=== PATIENT | female | born 1995 | race Caucasian/White ===

== ENCOUNTER → 2016-12-13 | Outpatient (CLI) | payer OTHER | LOC: BHSO 10:39 | DX: F31.81 Bipolar II disorder (principal) ==

== ENCOUNTER → 2019-09-26 | Outpatient (CLI) | payer OTHER | LOC: COL.RAD 08:53 | DX: R10.2 Pelvic and perineal pain (principal) ==

== ENCOUNTER 2021-07-15 09:01 | Inpatient (IN) | payer OTHER ==
[~2021-07-15] VITALS: Ht 160.1 cm; Wt 88.2 kg
[2021-07-15] VITALS (15 sets, daily range): BP systolic 94–1206; BP diastolic 39–71; PULSE 49–71; TEMP 98.1–98.4
--- NOTE | 2021-07-15 09:05 | NUR ---
0905 39.0, G1L0 here for primary c/s for breech presentation. Abmulatory to 220 with spouse. Reports normal movement. Denies any LOF, VB, or regular contractions. Changes into clean gown. 0913- EFM exlpained and placed. VS obtained. Consent forms exlpained and signed. Assessment completed. 0925- IV to right FA. Routine labs obtained. IVF infusing. Questions invited and answered. Call light within reach.
[2021-07-15 09:45] LABS: BASO % 0.4 % (0.0-2.0); EOS % 0.4 % (0-4.0); GRAN # 7.3 (1.4-6.5); GRAN % 70.7 % (42.2-75.2); HEMOGLOBIN 11.3 g/dl (12.5-16.0); LYMPH # 2.2 (1.2-3.4); LYMPH % 21.8 % (20.0-51.0); MEAN CELL VOLUME 89 fl (80.0-100.0); MEAN CORPUSCULAR HEMOGLOBIN 30 pg (27.0-31.0); MEAN CORPUSCULAR HGB CONC 33 g/dl (33.0-37.0); MEAN PLATELET VOLUME 11.2 fl (7.4-10.4); MONO # 0.6 (0.1-0.6); MONO % 6.3 % (1.7-9.3); PLATELET COUNT 247 K/mm3 (130-400); RED BLOOD COUNT 3.79 M/mm3 (4.10-5.30)
[2021-07-15 09:48] LABS: HEMATOCRIT 33.9 % (37.0-47.0)
[2021-07-15] MEDS ORDERED: OSCAL 500 TAB500 MG PO (09:48)
[2021-07-15] MEDS ORDERED: PRENATAL TABLET PO (09:48)
--- NOTE | 2021-07-15 12:55 | NUR ---
To pacu via bed with this nurse and anesthesia José Manuel. Denies any pain or discomfort at this time. Nibp machine on.
--- NOTE | 2021-07-15 13:15 | NUR ---
Rests in bed, alert. here. Nursery nurse here, visits patient about baby.
--- NOTE | 2021-07-15 13:45 | NUR ---
Rests in bed, alert. Eating a few crackers. Denies any pain at this time.
--- NOTE | 2021-07-15 13:57 | NUR ---
Rests in bed, alert. Tylenol 1000 mg given as ordered.
--- NOTE | 2021-07-15 15:00 | NUR ---
To nursery via bed, Holds baby.
--- NOTE | 2021-07-15 20:55 | NUR ---
2054- PT ASSISTED UP TO BATHROOM, AMBULATING WITH SHUFFLING GATE. CORDOVA CATHETER REMOVED WITHOUT DIFFICULTY. PT INSTRUCTED ON AND PERFORMS PERICARE. NORMAL LOCHIA DISCUSSED. CLEAN PAD AND PANTIES PROVIDED. PT ASSISTED INTO WHEELCHAIR AND TAKES HER TO NURSERY TO SEE BABY.
[2021-07-16 01:30] VITALS: BP 124/73; PULSE 55; TEMP 97.7
[2021-07-16 07:10] VITALS: BP 128/72; PULSE 76; TEMP 97.6
[2021-07-16 07:23] LABS: HEMOGLOBIN 10.8 g/dl (12.5-16.0)
[2021-07-16 07:28] LABS: HEMATOCRIT 33.3 % (37.0-47.0)
[2021-07-16 17:30] VITALS: BP 117/63; PULSE 50; TEMP 98.1
[2021-07-16 19:29] VITALS: BP 104/54; PULSE 54; TEMP 98.5
[2021-07-17 08:19] VITALS: BP 116/76; PULSE 78; TEMP 98.2
== END 2021-07-17 13:00 | disposition home or self-care (01) | DRG 788 ==
LOC: OB 09:01
PROVIDERS: ADMIT Obstetrics & Gynecology
PROC: 10D00Z1 Extraction of Products of Conception, Low, Open Approach (ICD-10-PCS; principal; 2021-07-15)
DX: O99.284 Endocrine, nutritional and metabolic diseases complicating childbirth (principal); E28.2 Polycystic ovarian syndrome; Z3A.39 39 weeks gestation of pregnancy; Z37.0 Single live birth; O99.344 Other mental disorders complicating childbirth
CPT/HCPCS: J0171; J0690; J1100; J1885; J2370; J2405; J2590; J7120